=== PATIENT | female | born 1940 | race Caucasian/White ===

== ENCOUNTER 2016-10-25 21:19 | Inpatient (IN) | payer OTHER, MEDICARE ==
[~2016-10-25] VITALS: Ht 144.8 cm; Wt 56.7 kg
[2016-10-25 21:27] VITALS: BP_SYST 123
[2016-10-25] MEDS ORDERED: LORazepam 2 MG/ML VIAL (FOR ER USE) IVP ONE (22:00)
[2016-10-25 22:06] LABS: BASOPHILS % (AUTO) 0.5 % (0.0-2.0); EOSINOPHILS % (AUTO) 0.7 % (0.0-4.0); HEMATOCRIT 35.9 % (36-48); HEMOGLOBIN 12.1 g/dL (12.0-16.0); LYMPHOCYTES # (AUTO) 2.2 K/uL (1.0-5.5); MEAN CORPUSCULAR HEMOGLOBIN 30 pg (27-31); MEAN CORPUSCULAR HGB CONC 34 % (32-36); MEAN CORPUSCULAR VOLUME 87 fL (79.0-98.0); MONOCYTES # (AUTO) 0.5 K/uL (0.0-1.0); NEUTROPHILS # (AUTO) 4.4 K/uL (1.8-7.7); NEUTROPHILS % (AUTO) 60.8 % (40.0-70.0); PLATELET COUNT (AUTO) 209 K/uL (130-430); RED BLOOD CELL COUNT(AUTO) 4.12 MIL/uL (4.2-6.2); RED CELL DISTRIBUTION WIDTH 13.1 % (9.0-15.0); WHITE BLOOD COUNT (AUTO) 7.1 K/uL (4.8-10.8)
[2016-10-25 22:12] LABS: BILIRUBIN,URINE NEGATIVE (NEGATIVE); BLOOD, URINE 1+ (NEGATIVE); CLARITY/URINE CLOUDY (CLEAR); COLOR,URINE YELLOW (YELLOW); GLUCOSE,URINE 3+ (NEGATIVE); KETONES,URINE NEGATIVE (NEGATIVE); LEUKOCYTE ESTERASE ,URINE NEGATIVE (NEGATIVE); NITRITE, URINE POSITIVE (NEGATIVE); PROTEIN URINE NEGATIVE (NEGATIVE); UROBILINOGEN,URINE 0.2 (0.2-1.0)
[2016-10-25 22:23] LABS: ANION GAP 8 (5-15); CALCIUM 9.2 mg/dL (8.4-11.0); CHLORIDE 97 mmol/L (98-107); CREATININE 0.93 mg/dL (0.55-1.30); GLUCOSE 301 mg/dL (70-99); SODIUM SERUM 134 mmol/L (136-145); UREA NITROGEN, BLOOD 27 mg/dL (8-21)
[2016-10-25 22:25] LABS: PROTHROMBIN TIME 10.7 SECS (9.5-12.5)
[2016-10-25 22:27] LABS: ALANINE AMINOTRANSFERASE 18 U/L (12-78); ALBUMIN 3.3 g/dL (3.4-4.8); ASPARTATE AMINOTRANSFERASE 20 U/L (10-37); CREATINE KINASE, TOTAL 240 U/L (26-192); SALICYLATE 2 mg/dL (3-30); TOTAL BILIRUBIN 0.2 mg/dL (0.0-1.0); TOTAL PROTEIN, SERUM 7.5 g/dL (6.4-8.3)
[2016-10-25 22:28] LABS: ALCOHOL, BLOOD < 3 mg/dL (<10)
[2016-10-25 22:33] LABS: BARBITURATE, URINE NEGATIVE (NEG <=200); BENZODIAZEPINE, URINE NEGATIVE (NEG <=150); CANNABINOID, URINE NEGATIVE (NEG <=50); COCAINE, URINE NEGATIVE (NEG <=150); METHAMPHETAMINES SCREEN,URINE NEGATIVE (NEG <=500); OPIATE, URINE NEGATIVE (NEG <=100); PHENCYCLIDINE SCREEN,URINE NEGATIVE (NEG <=25); UR TRICYCLIC ANTIDEPRESSANTS NEGATIVE (NEG <=300); URINE AMPHETAMINE NEGATIVE (NEG <=500); URINE METHADONE NEGATIVE (NEG <=200); URINE OXYCODONE SCREEN NEGATIVE (NEG <=100); URINE PROPOXYPHENE SCREEN NEGATIVE (NEG <=300)
[2016-10-25 22:36] LABS: ACETAMINOPHEN < 1 ug/mL (1-30)
[2016-10-25 22:38] LABS: BACTERIA,URINE MANY /HPF (None Seen); MUCUS,URINE None Seen /LPF (None Seen)
[2016-10-25] MEDS ORDERED: INSULIN REGULAR, HUMAN 10 UNITS/0.1 ML INJ IVP ONE (22:45)
[2016-10-25] MEDS ORDERED: NACL 0.9% 1,000 ML IV ONE (22:45)
[2016-10-25] MEDS ORDERED: cefTRIAXone 1 GM in D5W 50 ML IV ONE (22:45)
[2016-10-25] MEDS ORDERED: TRAZ-123 PO (22:47)
[2016-10-25] MEDS ORDERED: DEXT1CAP3 PO (22:47)
[2016-10-25] MEDS ORDERED: ASCO500T20 PO (22:47)
[2016-10-25] MEDS ORDERED: LOSA100T11 PO (22:47)
[2016-10-25] MEDS ORDERED: CEL20 PO (22:47)
[2016-10-25] MEDS ORDERED: GLIP5TAB13 PO (22:47)
[2016-10-25] MEDS ORDERED: LIP10 PO (22:47)
[2016-10-25] MEDS ORDERED: MULT240L3 PO (22:47)
[2016-10-25 22:49] LABS: CKMB RELATIVE INDEX 0.5 (0.0-2.9); CREATINE KINASE MB 1.3 ng/mL (0-3.6)
[2016-10-25] MEDS ORDERED: cefTRIAXone 1 GM VIAL ONE (22:54)
[2016-10-25] MEDS ORDERED: MAGN400O4 PO (22:55)
[2016-10-25] MEDS ORDERED: NA P118E RC (22:55)
[2016-10-25] MEDS ORDERED: ACET-2165 PO (22:55)
[2016-10-25] MEDS ORDERED: D5/0.45 NS 1,000 ML IV SCH (23:00)
[2016-10-25] MEDS ORDERED: MILK OF MAGNESIA 30 ML UDC PO PRN (23:15)
[2016-10-25] MEDS ORDERED: NA PHOS,M-B/NA PHOS,DI-BA 118 ML (FLEET ENEMA) RC PRN (23:15)
[2016-10-25] MEDS ORDERED: INSULIN REGULAR, HUMAN 10 UNITS/0.1 ML INJ SUBCUT ONE (23:15)
[2016-10-25] MEDS ORDERED: cefTRIAXone 1 GM VIAL IM ONE (23:15)
[2016-10-25] MEDS ORDERED: ACETAMINOPHEN 325 MG TABLET PO PRN (23:15)
[2016-10-25 23:45] VITALS: BP_SYST 122
[2016-10-26] VITALS: BP_SYST 149
[2016-10-26] MEDS ORDERED: PIPERACILLIN/TAZOBACTAM 2.25 GM VIAL IV ONE (00:44)
[2016-10-26] MEDS: LORazepam 2 MG/ML VIAL IVP PRN ×3 (01:16→14:54)
[2016-10-26 03:17] VITALS: BP_SYST 150
[2016-10-26] MEDS: PIPERACILLIN/TAZO 2.25G/DEX-IS 50 ML IV SCH ×4 (06:05→17:22)
[2016-10-26 07:48] LABS: BASOPHILS % (AUTO) 0.4 % (0.0-2.0); EOSINOPHILS # (AUTO) 0.1 K/uL (0.0-0.4); EOSINOPHILS % (AUTO) 0.8 % (0.0-4.0); HEMATOCRIT 36.7 % (36-48); HEMOGLOBIN 12.3 g/dL (12.0-16.0); LYMPHOCYTES # (AUTO) 2.1 K/uL (1.0-5.5); MEAN CORPUSCULAR HEMOGLOBIN 29 pg (27-31); MEAN CORPUSCULAR HGB CONC 34 % (32-36); MEAN CORPUSCULAR VOLUME 87 fL (79.0-98.0); MONOCYTES # (AUTO) 0.6 K/uL (0.0-1.0); MONOCYTES % (AUTO) 8.8 % (1.7-9.3); NEUTROPHILS # (AUTO) 4.1 K/uL (1.8-7.7); PLATELET COUNT (AUTO) 185 K/uL (130-430); RED BLOOD CELL COUNT(AUTO) 4.22 MIL/uL (4.2-6.2); RED CELL DISTRIBUTION WIDTH 13.2 % (9.0-15.0); WHITE BLOOD COUNT (AUTO) 6.9 K/uL (4.8-10.8)
[2016-10-26 07:57] LABS: ANION GAP 3 (5-15); CALCIUM 9.5 mg/dL (8.4-11.0); CHLORIDE 107 mmol/L (98-107); GLUCOSE 160 mg/dL (70-99); SODIUM SERUM 141 mmol/L (136-145); UREA NITROGEN, BLOOD 18 mg/dL (8-21)
[2016-10-26] MEDS: CITALOPRAM HYDROBROMIDE 20 MG TABLET PO SCH ×3 (08:09→08:20)
[2016-10-26] MEDS: ASCORBIC ACID 500 MG TABLET PO SCH ×3 (08:11→08:20)
[2016-10-26] MEDS: LOSARTAN POTASSIUM 50 MG TABLET (COZAAR) PO SCH ×3 (08:11→08:20)
[2016-10-26] MEDS: MULTIVITS W-MIN/FERROUS GLUC 15 ML UDC PO SCH ×3 (08:12→08:20)
[2016-10-26] MEDS: ENOXAPARIN SODIUM 40 MG/0.4 ML SYRINGE SUBCUT SCH (08:12)
[2016-10-26 08:27] VITALS: BP_SYST 100
[2016-10-26] MEDS ORDERED: HALOPERIDOL LACTATE 5 MG/ML VIAL IM ONE (11:45)
[2016-10-26] MEDS ORDERED: HALOPERIDOL LACTATE 5 MG/ML VIAL ONE (11:51)
[2016-10-26 12:00] VITALS: BP_SYST 133
[2016-10-26 16:05] VITALS: BP_SYST 142
[2016-10-26 20:00] VITALS: BP_SYST 144
[2016-10-26] MEDS: ATORVASTATIN 10 MG TABLET PO SCH (22:37)
[2016-10-26] MEDS: traZODone HCL 50 MG TABLET (DESYREL) PO SCH (22:37)
[2016-10-27] VITALS (7 sets, daily range): BP systolic 133–159
[2016-10-27] MEDS: LORazepam 2 MG/ML VIAL IVP PRN ×3 (02:26→17:05)
[2016-10-27] MEDS: PIPERACILLIN/TAZO 2.25G/DEX-IS 50 ML IV SCH ×4 (02:26→17:36)
[2016-10-27 07:52] LABS: BASOPHILS % (AUTO) 0.3 % (0.0-2.0); EOSINOPHILS # (AUTO) 0.1 K/uL (0.0-0.4); EOSINOPHILS % (AUTO) 0.9 % (0.0-4.0); HEMATOCRIT 34.4 % (36-48); HEMOGLOBIN 11.8 g/dL (12.0-16.0); LYMPHOCYTES # (AUTO) 1.8 K/uL (1.0-5.5); LYMPHOCYTES % (AUTO) 31.8 % (20.5-51.5); MEAN CORPUSCULAR HEMOGLOBIN 30 pg (27-31); MEAN CORPUSCULAR HGB CONC 34 % (32-36); MEAN CORPUSCULAR VOLUME 87 fL (79.0-98.0); MONOCYTES # (AUTO) 0.3 K/uL (0.0-1.0); MONOCYTES % (AUTO) 5.6 % (1.7-9.3); NEUTROPHILS # (AUTO) 3.4 K/uL (1.8-7.7); NEUTROPHILS % (AUTO) 61.4 % (40.0-70.0); PLATELET COUNT (AUTO) 185 K/uL (130-430); RED BLOOD CELL COUNT(AUTO) 3.98 MIL/uL (4.2-6.2); RED CELL DISTRIBUTION WIDTH 12.9 % (9.0-15.0); WHITE BLOOD COUNT (AUTO) 5.6 K/uL (4.8-10.8)
[2016-10-27 08:09] LABS: ALANINE AMINOTRANSFERASE 16 U/L (12-78); ALBUMIN 3.2 g/dL (3.4-4.8); ANION GAP 5 (5-15); ASPARTATE AMINOTRANSFERASE 18 U/L (10-37); CHLORIDE 104 mmol/L (98-107); CREATININE 0.71 mg/dL (0.55-1.30); GLUCOSE 203 mg/dL (70-99); POTASSIUM 3.1 mmol/L (3.5-5.1); SODIUM SERUM 137 mmol/L (136-145); TOTAL BILIRUBIN 0.5 mg/dL (0.0-1.0); TOTAL PROTEIN, SERUM 7.4 g/dL (6.4-8.3); UREA NITROGEN, BLOOD 13 mg/dL (8-21)
[2016-10-27] MEDS: ASCORBIC ACID 500 MG TABLET PO SCH (08:21)
[2016-10-27] MEDS: CITALOPRAM HYDROBROMIDE 20 MG TABLET PO SCH (08:21)
[2016-10-27] MEDS: ENOXAPARIN SODIUM 40 MG/0.4 ML SYRINGE SUBCUT SCH (08:22)
[2016-10-27] MEDS: LOSARTAN POTASSIUM 50 MG TABLET (COZAAR) PO SCH (08:22)
[2016-10-27] MEDS: MULTIVITS W-MIN/FERROUS GLUC 15 ML UDC PO SCH (08:22)
[2016-10-27] MEDS ORDERED: POTASSIUM CHLORIDE 20 MEQ TAB.PRT.SR PO ONE (10:30)
[2016-10-27] MEDS: INSULIN REGULAR, HUMAN 100 UNITS/ML, 10 ML VIAL (novoLIN R) SUBCUT SCH ×3 (12:00→23:57)
[2016-10-27] MEDS: ATORVASTATIN 10 MG TABLET PO SCH (21:10)
[2016-10-27] MEDS: traZODone HCL 50 MG TABLET (DESYREL) PO SCH (21:11)
[2016-10-28 03:45] VITALS: BP_SYST 131
[2016-10-28] MEDS: INSULIN REGULAR, HUMAN 100 UNITS/ML, 10 ML VIAL (novoLIN R) SUBCUT SCH ×4 (05:58→23:44)
[2016-10-28] MEDS: PIPERACILLIN/TAZO 2.25G/DEX-IS 50 ML IV SCH ×3 (06:00→12:29)
[2016-10-28 06:58] LABS: BASOPHILS % (AUTO) 0.5 % (0.0-2.0); EOSINOPHILS # (AUTO) 0.1 K/uL (0.0-0.4); EOSINOPHILS % (AUTO) 1.2 % (0.0-4.0); HEMATOCRIT 34.1 % (36-48); HEMOGLOBIN 11.6 g/dL (12.0-16.0); LYMPHOCYTES # (AUTO) 2.5 K/uL (1.0-5.5); LYMPHOCYTES % (AUTO) 38.4 % (20.5-51.5); MEAN CORPUSCULAR HEMOGLOBIN 29 pg (27-31); MEAN CORPUSCULAR HGB CONC 34 % (32-36); MEAN CORPUSCULAR VOLUME 87 fL (79.0-98.0); MONOCYTES # (AUTO) 0.4 K/uL (0.0-1.0); MONOCYTES % (AUTO) 5.9 % (1.7-9.3); NEUTROPHILS # (AUTO) 3.6 K/uL (1.8-7.7); PLATELET COUNT (AUTO) 196 K/uL (130-430); RED BLOOD CELL COUNT(AUTO) 3.93 MIL/uL (4.2-6.2); WHITE BLOOD COUNT (AUTO) 6.6 K/uL (4.8-10.8)
[2016-10-28 07:22] LABS: ALANINE AMINOTRANSFERASE 14 U/L (12-78); ALBUMIN 3.1 g/dL (3.4-4.8); ANION GAP 5 (5-15); ASPARTATE AMINOTRANSFERASE 15 U/L (10-37); CALCIUM 9.3 mg/dL (8.4-11.0); CHLORIDE 107 mmol/L (98-107); CREATININE 0.72 mg/dL (0.55-1.30); GLUCOSE 192 mg/dL (70-99); POTASSIUM 4.1 mmol/L (3.5-5.1); SODIUM SERUM 140 mmol/L (136-145); TOTAL BILIRUBIN 0.3 mg/dL (0.0-1.0); TOTAL PROTEIN, SERUM 7.1 g/dL (6.4-8.3); UREA NITROGEN, BLOOD 18 mg/dL (8-21)
[2016-10-28] MEDS: MULTIVITS W-MIN/FERROUS GLUC 15 ML UDC PO SCH (09:00)
[2016-10-28] MEDS: CITALOPRAM HYDROBROMIDE 20 MG TABLET PO SCH (10:06)
[2016-10-28] MEDS: LOSARTAN POTASSIUM 50 MG TABLET (COZAAR) PO SCH (10:10)
[2016-10-28] MEDS: ENOXAPARIN SODIUM 40 MG/0.4 ML SYRINGE SUBCUT SCH (10:11)
[2016-10-28] MEDS: ASCORBIC ACID 500 MG TABLET PO SCH (10:11)
[2016-10-28] MEDS: ONDANSETRON HCL 4 MG/2 ML VIAL IVP PRN (10:12)
[2016-10-28] MEDS: MUPIROCIN 2% TOPICAL OINTMENT 22 GM TP SCH ×2 (10:21→21:14)
[2016-10-28 12:30] VITALS: BP_SYST 158
[2016-10-28] MEDS ORDERED: INSULIN REGULAR, HUMAN 100 UNITS/ML, 10 ML VIAL SUBCUT ONE (13:15)
[2016-10-28] MEDS: cefTRIAXone 1 GM in D5W 50 ML IV SCH ×2 (14:15→19:38)
[2016-10-28 16:51] VITALS: BP_SYST 143
[2016-10-28] MEDS ORDERED: cefTRIAXone 1 GM VIAL ONE (19:09)
[2016-10-28 19:45] VITALS: BP_SYST 122
[2016-10-28] MEDS: traZODone HCL 50 MG TABLET (DESYREL) PO SCH (21:13)
[2016-10-28] MEDS: ATORVASTATIN 10 MG TABLET PO SCH (21:13)
[2016-10-28 23:41] VITALS: BP_SYST 150
[2016-10-29 03:51] VITALS: BP_SYST 152
[2016-10-29] MEDS: INSULIN REGULAR, HUMAN 100 UNITS/ML, 10 ML VIAL (novoLIN R) SUBCUT SCH ×3 (06:00→16:56)
[2016-10-29] MEDS: MULTIVITS W-MIN/FERROUS GLUC 15 ML UDC PO SCH (09:00)
[2016-10-29] MEDS: LOSARTAN POTASSIUM 50 MG TABLET (COZAAR) PO SCH (09:47)
[2016-10-29] MEDS: ASCORBIC ACID 500 MG TABLET PO SCH (09:48)
[2016-10-29] MEDS: CITALOPRAM HYDROBROMIDE 20 MG TABLET PO SCH (09:48)
[2016-10-29] MEDS: ONDANSETRON HCL 4 MG/2 ML VIAL IVP PRN ×2 (09:49→15:42)
[2016-10-29] MEDS: ENOXAPARIN SODIUM 40 MG/0.4 ML SYRINGE SUBCUT SCH (09:49)
[2016-10-29] MEDS ORDERED: HALOPERIDOL LACTATE 5 MG/ML VIAL IM ONE (10:30)
[2016-10-29] MEDS ORDERED: DIPHENHYDRAMINE INJ 50 MG/ML VIAL IM ONE (10:30)
[2016-10-29] MEDS ORDERED: LORazepam 2 MG/ML VIAL IM ONE (10:30)
[2016-10-29 12:57] VITALS: BP_SYST 122
[2016-10-29] MEDS: cefTRIAXone 1 GM in D5W 50 ML IV SCH ×2 (15:42→15:44)
[2016-10-29] MEDS: MUPIROCIN 2% TOPICAL OINTMENT 22 GM TP SCH ×2 (15:43→22:22)
[2016-10-29] MEDS: QUEtiapine FUMARATE 25 MG TABLET PO SCH ×2 (16:46→22:23)
[2016-10-29 18:00] VITALS: BP_SYST 135
[2016-10-29 20:00] VITALS: BP_SYST 109
[2016-10-29] MEDS ORDERED: DOXYCYCLINE HYCLATE 100 MG CAPSULE PO SCH (21:00)
[2016-10-29] MEDS ORDERED: DOXYCYCLINE HYCLATE 100 MG CAPSULE PO ONE (21:30)
[2016-10-29] MEDS: traZODone HCL 50 MG TABLET (DESYREL) PO SCH (22:23)
[2016-10-29] MEDS: ATORVASTATIN 10 MG TABLET PO SCH (22:23)
[2016-10-30 00:08] VITALS: BP_SYST 119
[2016-10-30 04:13] VITALS: BP_SYST 135
[2016-10-30] MEDS: INSULIN REGULAR, HUMAN 100 UNITS/ML, 10 ML VIAL (novoLIN R) SUBCUT SCH ×4 (06:26→17:12)
[2016-10-30 08:00] VITALS: BP_SYST 147
[2016-10-30] MEDS ORDERED: traZODone HCL 50 MG TABLET (DESYREL) PO PRN (09:00)
[2016-10-30] MEDS: MUPIROCIN 2% TOPICAL OINTMENT 22 GM TP SCH ×2 (09:07→21:25)
[2016-10-30] MEDS: ENOXAPARIN SODIUM 40 MG/0.4 ML SYRINGE SUBCUT SCH (09:08)
[2016-10-30] MEDS: LOSARTAN POTASSIUM 50 MG TABLET (COZAAR) PO SCH (09:08)
[2016-10-30] MEDS: MULTIVITS W-MIN/FERROUS GLUC 15 ML UDC PO SCH (09:08)
[2016-10-30] MEDS: ASCORBIC ACID 500 MG TABLET PO SCH (09:08)
[2016-10-30] MEDS: DOXYCYCLINE HYCLATE 100 MG CAPSULE PO SCH ×2 (09:08→21:26)
[2016-10-30] MEDS: QUEtiapine FUMARATE 25 MG TABLET PO SCH ×2 (10:24→21:26)
[2016-10-30] MEDS: CITALOPRAM HYDROBROMIDE 20 MG TABLET PO SCH (10:24)
[2016-10-30 12:43] VITALS: BP_SYST 134
[2016-10-30 16:22] VITALS: BP_SYST 129
[2016-10-30] MEDS: LORazepam 2 MG/ML VIAL IM PRN (17:44)
[2016-10-30 19:30] VITALS: BP_SYST 132
[2016-10-30] MEDS: ATORVASTATIN 10 MG TABLET PO SCH (21:25)
[2016-10-31] VITALS: BP_SYST 138
[2016-10-31] MEDS: INSULIN REGULAR, HUMAN 100 UNITS/ML, 10 ML VIAL (novoLIN R) SUBCUT SCH ×3 (00:46→11:44)
[2016-10-31 04:00] VITALS: BP_SYST 112
[2016-10-31 09:09] VITALS: BP_SYST 148
[2016-10-31] MEDS: MULTIVITS W-MIN/FERROUS GLUC 15 ML UDC PO SCH (09:14)
[2016-10-31] MEDS: DOXYCYCLINE HYCLATE 100 MG CAPSULE PO SCH (09:15)
[2016-10-31] MEDS: LOSARTAN POTASSIUM 50 MG TABLET (COZAAR) PO SCH (09:15)
[2016-10-31] MEDS: CITALOPRAM HYDROBROMIDE 20 MG TABLET PO SCH (09:15)
[2016-10-31] MEDS: ENOXAPARIN SODIUM 40 MG/0.4 ML SYRINGE SUBCUT SCH (09:16)
[2016-10-31] MEDS: QUEtiapine FUMARATE 25 MG TABLET PO SCH (09:16)
[2016-10-31] MEDS: MUPIROCIN 2% TOPICAL OINTMENT 22 GM TP SCH (09:16)
[2016-10-31] MEDS: ASCORBIC ACID 500 MG TABLET PO SCH (09:16)
[2016-10-31 12:45] VITALS: BP_SYST 140
[2016-10-31] MEDS: LORazepam 2 MG/ML VIAL IM PRN (13:53)
[2016-10-31 16:19] VITALS: BP_SYST 137
[2016-10-31 16:34] VITALS: BP_SYST 137
== END 2016-10-31 17:30 | DRG 689 ==
LOC: SED 21:19 → SMU 23:00
DX: N39.0 Urinary tract infection, site not specified (principal); G93.41 Metabolic encephalopathy; F03.91 Unspecified dementia, unspecified severity, with behavioral disturbance; E11.65 Type 2 diabetes mellitus with hyperglycemia; F29 Unspecified psychosis not due to a substance or known physiological condition; I10 Essential (primary) hypertension; E78.00 Pure hypercholesterolemia, unspecified; Z79.899 Other long term (current) drug therapy; Z88.2 Allergy status to sulfonamides; Z90.49 Acquired absence of other specified parts of digestive tract; Z90.710 Acquired absence of both cervix and uterus
CPT/HCPCS: 36415; 70450-TC; 80048; 80053; 80307; 81000-TC; 82550-TC; 82553-TC; 82962; 84484; 85025; 85610-TC; 85730-TC; 87081; 87086; 87186-TC; 93005; 96361; 96372; 96374; 99285; G0480; G0481; G0482; J0696; J1200; J1630; J1650; J1815; J2060; J2405; J2543; J7030; J7050; J7060